=== PATIENT | female | born 1990 ===

== ENCOUNTER 2016-08-12 16:28 | Emergency (ER) | payer MEDICAID ==
[2016-08-12 17:18] LABS: URINE BACTERIA FEW (<OCC); URINE BILIRUBIN 1+ (NEGATIVE); URINE COLOR Amber (YELLOW); URINE GLUCOSE (UA) NORMAL (Normal); URINE KETONE TRACE mg/dL (NEGATIVE); URINE LEUKOCYTE ESTERASE 2+ Leu/uL (Negative); URINE PROTEIN 1+ mg/dL (NEGATIVE); WBC URINE 12 /hpf (0-5)
[2016-08-12 17:23] LABS: URINE BLOOD TRACE (NEGATIVE)
[2016-08-12 17:24] LABS: RBC URINE 15 /hpf (0-3)
--- NOTE | 2016-08-12 17:48 | OBHP ---
Datetime: 08/12/2016 17:24 IP Adm Impression: , intrauterine ; No Active Labor IP Chief Complaint Other: lower abdominal pain IP Adm Impression Other: uti IP Admit Plan: Discharge home Admit Comment, IP Provider: chief complaint-lower abdominal pain HPI 27 y/o at 31.4 wga with c/o sharp lower abdominal discomfort which she felt after she vi site dthe clinic.Patient denies any vaginal bleeding or loss of fluid course uncomplicated PMH denies PSH denies OBGYN HX ; NVDX2; sabx5; topx2 Social hx denies tobacco,alcohol or illicit drug use Exam see exam section ua with 1+proteoin., nitrites, +le, +bacteria A/P 27 y/o at 31.4 wga with lower abodminal pain.UA shows UTI.Cervix clsoed.patient disch arged home Pelvic Type - PN: Adequate Extremities - PN: Normal Abdomen - PN: Normal Back - PN: Normal Lungs - PN: Normal Heart - PN: Normal Neurologic - PN: Normal General - PN: Normal EGA AdmitDate IP: 31.4 Vital Signs Provider: Reviewed; Within Normal Limits IP Chief Complaint: Other FHR Category Provider Fetus A: Category I Dilatation, Provider: 0 Effacement, Provider: thick Station, Provider: -3 Genitourinary Exam: Normal DTRs - PN: Normal
== END 2016-08-12 17:36 | disposition home or self-care (01) ==
LOC: C.EROB 16:28
DX: O23.43 Unspecified infection of urinary tract in pregnancy, third trimester (principal); Z3A.31 31 weeks gestation of pregnancy

== ENCOUNTER 2016-09-11 10:46 | Emergency (ER) | payer MEDICAID, OTHER ==
--- NOTE | 2016-09-16 16:15 | OBHP ---
Datetime: 09/11/2016 20:13 IP Adm Impression: , intrauterine IP Chief Complaint Other: NST IP Admit Plan: Discharge home Admit Comment, IP Provider: 26 yo , LMP unsure; JOSUE 10/08/16, EGA 36w 1d, referred for NST - due to poor Obstetric history. (+) AFM; denies LOF, VB, Ctx; (+) occ vaginal pressure. care: [facility] [place] - as above. Has visit today; previous visit - 1 week ago. P Ob: x 2: both males, 2009, 8lb 3oz; 2013, 6lb 13 oz, both at [facility]; no complicati ons. Spont ab x 5 - all in first trimestre; no D_C/complications. VTOP x 2; both first trimestre; w ith D_C; no complications. 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 [place] with her 2 sons. FOB not involv ed. Fam Hx: Mother alive 47 y.o. no med issues. Father alive 54 y.o. - thyroid disorder. MGM - Breast CA survivor. P.E.: as above. WD in NAD. Awake, alert, oriented to time, person and place. Pleasant and cooperat jana Assessment: 26 y.o. P2072, 36w 1d, poor obststric history for NST - NST reactive/Category 1 tracin g. Clinicallystable. Plan 1) Discharge home 2) Keep scheduled appointments 3) Reviewed S/S PTL Pelvic Type - PN: Not Done Extremities - PN: Normal Abdomen - PN: Normal Back - PN: Normal Breast - PN: Not Done Lungs - PN: Normal Heart - PN: Normal Thyroid - PN: Not Done Neurologic - PN: Normal HEENT - PN: Normal General - PN: Normal Presentation-Admit: Vertex FHR - Baseline A Provider: 140 Contraction Comments Provider: occasional Comments, ACOG Physical Exam: Abdomen: gravid. Soft, Non tender All other systems reviewed and are negative Gestation - Est Wks by US: 36w 1d Vital Signs Provider: Reviewed NICHD Variability Prov Fetus A: Moderate 6-25bpm NICHD Accel Fetus A IP Provider: [id number] FHR Category Provider Fetus A: Category I NICHD Decel Fetus A IP Provider: None Dilatation, Provider: deferred Genitourinary Exam: Not Done DTRs - PN: Not Done Datetime: 08/12/2016 17:24 EGA AdmitDate IP: 31.4
--- NOTE | 2016-09-16 16:55 | OBHP ---
Datetime: 09/16/2016 16:51 IP Adm Impression: , intrauterine IP Adm Impression Other: NST reactive IP Admit Plan: Discharge home Admit Comment, IP Provider: 26 yo , LMP unsure; JOSUE 10/10/16, EGA 36w 4d, referred for NST - due to poor Obstetric history. (+) AFM; denies LOF, VB, Ctx; (+) occ vaginal pressure. care: [facility] - as above. P Ob: x 2: both males, 2009, 8lb 3oz; 2013, 6lb 13 oz, both at [facility]; no complicati ons. Spont ab x 5 - all in first trimestre; no D_C/complications. VTOP x 2; both first trimestre; w ith D_C; no complications. 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 [place] her 2 sons. FOB not involv ed. Fam Hx: Mother alive 47 y.o. no med issues. Father alive 54 y.o. - thyroid disorder. MGM - Breast CA survivor. P.E.: as above. WD in NAD. Awake, alert, oriented to time, person and place. Pleasant and cooperat lucien NST reactive cervix closed Assessment: 26 y.o. P2072, 36w 4d, poor obststric history for NST - NST reactive/Category 1 tracin g. Clinicallystable. Plan 1) Discharge home 2) Keep scheduled appointments in clinic in 2 days 3) Reviewed S/S PTL Pelvic Type - PN: Adequate Extremities - PN: Normal Abdomen - PN: Normal Back - PN: Normal Lungs - PN: Normal Heart - PN: Normal Neurologic - PN: Normal General - PN: Normal Contraction Comments Provider: none Gestation - Est Wks by US: 36.4 IP Hx Assessment: The History has been Reviewed and is Current EGA AdmitDate IP: 36.4 Vital Signs Provider: Reviewed; Within Normal Limits IP Chief Complaint: evaluation FHR Category Provider Fetus A: Category I Dilatation, Provider: 0 Effacement, Provider: thick Station, Provider: high Genitourinary Exam: Normal DTRs - PN: Normal
== END 2016-09-11 11:35 | disposition home or self-care (01) ==
LOC: C.EROB 10:46
DX: Z36 Encounter for antenatal screening of mother (principal)

== ENCOUNTER 2016-09-16 16:25 | Emergency (ER) | payer OTHER | END 2016-09-16 16:53 | disposition home or self-care (01) | LOC: C.EROB 16:25 | DX: Z36 Encounter for antenatal screening of mother (principal) ==

== ENCOUNTER 2016-09-18 21:49 | Emergency (ER) | payer OTHER ==
[2016-09-18] MEDS ORDERED: Lactated Ringer's 1,000 ML IV ONE (22:22)
== END 2016-09-19 00:23 | disposition home or self-care (01) ==
LOC: C.EROB 21:49
DX: O47.03 False labor before 37 completed weeks of gestation, third trimester (principal); E86.0 Dehydration; Z3A.36 36 weeks gestation of pregnancy